=== PATIENT | female | born 1935 | race African-American/Black ===

== ENCOUNTER 2017-05-25 10:48 | Outpatient (CLI) ==
[2016-03-21 21:49] VITALS: BMI 30.9
--- NOTE | 2017-05-25 12:42 | CT ---
Exam: CT of the lumbar spine without intravenous contrast. Comparison: 07/27/2013. Reason for exam: Back pain. FINDINGS: No acute fracture or listhesis. There is multilevel degenerative disease seen throughout the lumbar spine. The vertebral body heights are well maintained. There is a normal appearing lumba r lordotic curve. T12-L1: No significant central canal or foraminal narrowing. L1-L2: No significant central canal or foraminal narrowing. L2-L3: Small broad-based disc bulge with impression on the thecal sac and mild central canal narrowi ng with moderate left foraminal narrowing. L3-L4: Broad-based disc bulge with moderate central canal and foraminal narrowing. L4-L5: Broad-based disc bulge with moderate to marked central canal and foraminal narrowing. L5-S1: Broad-based disc bulge with mild to moderate central canal and foraminal narrowing. Decreased mineralization with heterogenicity in the partially imaged left iliac. Impression: 1. No acute fracture is seen within the lumbar spine. 2. Multilevel degenerative disease as described. 3. Osseous changes in the left hip may represent Paget's disease, radiation change, infection, or ne oplasia. Imaging findings are similar when compared to the CT performed on 07/27/2013 which suggests a relatively benign disease process.
== END 2017-05-25 10:49 | disposition home or self-care (01) ==
LOC: RAD 10:48
PROVIDERS: ATTEND Family Medicine
DX: M54.5 Low back pain (principal)